=== PATIENT | male | born 1970 | race Caucasian/White ===

== ENCOUNTER 2018-07-15 00:30 | Inpatient (IN) | payer OTHER ==
[~2018-07-15] VITALS: Ht 180.3 cm; Wt 85.5 kg
[2018-07-15] MEDS ORDERED: SINGULAIR4 M1 PO (00:39)
[2018-07-15] MEDS ORDERED: VENTOLIN HFA18 GM INH (00:39)
[2018-07-15] MEDS ORDERED: ASMANEX220 MC1 INH (00:40)
--- NOTE | 2018-07-15 03:31 | NUR ---
ADMIT THIS 47YR OLD MALE TO CCU PER STRETCHER. STOOD AND PIVOTED TO BED FROM STRETCHER. IS TACHYPNEAC AND RESP LABORED. AFTER NEB TX GIVEN PER RT WAS ABLE TO HAVE HOB DOWN TO ABOUT 20 DEGREES. STATES HAS NOT SLEPT WELL FOR 2 DAYS NOR EATEN OR TAKEN MUCH FLUIDS. VOIDED JUST PRIOR TO COMING TO ED. HAS HX OF SLEEP APNEA BUT DOES NOT USE ALL THE TIME. WHEN PT DOES FALL ASLEEP SNORING NOTED. GIVEN SIP COLA. HR 127 ON ADMISSION BUT DEC TO 113 WHEN ASLEEP. RR 26-32. HAS COUGHING EPISODES PT STATES COUGH IS PRODUCTIVE AND THAT SPUTUM IS WHITE. DID HAVE COUGHING EPISODE WHERE PT HAD INC SOB FOR ABOUT 5 MIN AFTERWARD. IS ON 02 4L NC. DID VOID HERE, 300ML CONCENTRATED URINE.
--- NOTE | 2018-07-15 03:56 | NUR ---
PT WILL FALL ASLEEP FOR 5 MIN AND THEN AWAKEN COUGHING, HR AND RR WILL THEN INC. DR LIZARRAGA CALLED AND ORDER RECIEVED.
--- NOTE | 2018-07-15 04:24 | NUR ---
PT WAS GIVEN ROBITUSSIN COUGH SYRUP. RESTING A LITTLE BETTER NOW.
--- NOTE | 2018-07-15 05:14 | NUR ---
PT CALLED REQUESTING A BREATHING TRT, RT NOTIFIED AND WILL BE HERE SHORTLY.
--- NOTE | 2018-07-15 05:34 | NUR ---
REQUESTED NEB TX. BETSY TX WELL AND STATES IT MADE HIM FEEL BETTER. SLEEPS FOR SHORT INTERVALS.
--- NOTE | 2018-07-15 06:06 | NUR ---
WILL SLEEP OFF AND ON. RR 36-4- EVEN WHEN ASLEEP.
--- NOTE | 2018-07-15 07:02 | NUR ---
SLEPT WELL FOR ABOUT 1 HR, SATS DID DEC TO 87 AND 02 INC TO 5L, MOUTH BREATHING SOMEWHAT.
--- NOTE | 2018-07-15 07:10 | NUR ---
NT AND ORAL SUCTIONING DONE AT THIS TIME.
--- NOTE | 2018-07-15 07:30 | NUR ---
REPORT RECIEVED. PATIENT IS LAYING IN BED, EYES CLOSED. USING ACM BREATHING.
--- NOTE | 2018-07-15 08:00 | NUR ---
PATIENT IS NOW SITTING UP IN CHAIR, EXTREME SHORTNESS OF BREATH. RESP VERY LABORED. TRIPODING. LUNGS WITH WHEEZES AND VERY TIGHT. RR-35, HR- 115. RESP THERAPY NOTIFIED TO GIVE NEB TREATMENT STAT.
--- NOTE | 2018-07-15 08:15 | NUR ---
NEB TREATMENT BEING GIVEN. REMAINS IN CHAIR. IVF LR BOLUS GONZALES, SOLUMEDROL [address] LIZARRAGA IN ROOM.
--- NOTE | 2018-07-15 08:45 | NUR ---
LAYING DOWN IN BED, IS MORE RESTFUL.
--- NOTE | 2018-07-15 08:55 | NUR ---
SITTING AT BEDSIDE, COUGHING, STATES IS WAS DOING BETTER THEN STARTED TO COUGH, NOW I CAN NOT BRREATH. STATES I AM REALLY STRUGGLING. DR. LIZARRAGA IS HERE AND AWARE. VAPOTHERM, CONTINOUS NEB ORDERED. ROBITUSSIN 10 ML GIVEN FOLLOWED BY MORPHING 1 MG IV.
--- NOTE | 2018-07-15 09:46 | NUR ---
continue to recieve CONTINOUS NEB. IS MORE RESTFUL AT THIS TIME IS ON VAPOTHERM AT 50 FIO2. IVF LR AT 125 ML/HR. IS NOW NPO. LR BOLUS COMPLETE EARLIER.
--- NOTE | 2018-07-15 10:15 | NUR ---
IN BED RESTING, RESP RATE 30-40 PER MIN.
--- NOTE | 2018-07-15 10:47 | NUR ---
MIREYA STATES"I DON'T FEEL LIKE ANYTHING IS WOKING" RESP REMAIN LABORED USING ACM, O2 SAT-92, RESP RATE-40, REMAINS ON VAPOTHERM AT 50% FIO2.
--- NOTE | 2018-07-15 11:00 | NUR ---
BIPAP IMPLEMENTED 16/8 FIO2-50% RR-20.
--- NOTE | 2018-07-15 11:15 | NUR ---
TOLERATING BIPAP WELL. RR DECREASED TO 15.DR. LIZARRAGA DISCUSSED POSSIBLE NEED FOR INTABATION, PATEINT IS UNDERSTANDING AND ACCEPTING IF INTABATION IS NEEDED. PATIENT IS IN ROOM.
--- NOTE | 2018-07-15 11:30 | NUR ---
SITTING AT BEDSIDE. HAVING SEVERE COUGHING EPISODE. PATIENT UNABLE TO TALK. HR-130. DR. LIZARRAGA HERE AND AWARE. ORDERS RECIEVED TO INTABATE. PT AND PATIENT AWARE.
--- NOTE | 2018-07-15 12:00 | NUR ---
PATIENT INTABATED PER Alex MAHONEY METAL ANNEALER USING SIZE 7 TUBE. PROPOFOL GTT HUNG. INTABATED W/O PROBLEMS. WRIST RESTRAINTS BILAT PLACED.
--- NOTE | 2018-07-15 12:20 | NUR ---
CHEST XRAY DONE. ETT TO 24 AT TEETH FROM 21.
--- NOTE | 2018-07-15 12:30 | NUR ---
VENT SETTINGS TV-450, FIO2-70, CMV-26, PEEP-8, PIP-25. SPUTUM SENT TO LAB. SUCTIONED FOR LARGE AMOUNT OF THICK YELLOW SPUTUM.
--- NOTE | 2018-07-15 12:30 | NUR ---
ESPINOZA CATH PLACED WITH RETURN OF CLEAR YELLOW URINE. FENTANYL GTT HUNG AT 2 MG/KG/MIN, TITRATING PROPOFOL GTT PRN. CURRENT RATE 50 MCG/KG/MIN.
--- NOTE | 2018-07-15 12:45 | NUR ---
ABG RESULTS 70% FIO2 PH-7.21, PCO2-59.9,PO2-101, HCO-22.9, SAT-95.6.
--- NOTE | 2018-07-15 13:57 | NUR ---
Certified Heart Failure Nurse Notes: Diagnosis:heart failure exacerbation history of CVA, CAD, CABG, DM Delinquent Tax [employer]or Barbara PCP:Bryant King Echocardiogram pending Admit Wt.: 212 lb Admit BNP: 181 Social support system: daughter in law has given patient book on healthy eating. Nephew Riley Ellington is emergency contact and accompanies patient to appointments in [place]. Weight monitoring: Scale present in home. Identifies how to weigh daily/ identifies when to notify PCP Symptom management: Specific written recommendations to follow-up for ongoing management, and to address changes in weight or symptoms discussed. Transportation mode: Patient drives Diet: Usual meals include red meat, but not daily Cooks and shops for self. Dines out once a month with nephew at [facility] and enjoys sharing the granados fried oXactium plate. Demonstrates label reading abilities Medication routine: Denies missed medications. Is familiar with medications and timely in taking Tikosyn. Uses weekly pill box. Has been counseled on minimizing/avoiding use of NSAIDs Tobacco: former Advanced directive: Not discussed at this initial visit Recommendations prior to discharge: Document ambulation oxygen saturations prior to discharge Absence of orthostatic hypotension. DC weight < admit weight. Follow up visit to be made prior to DC (as per [facility] HF Bundle) Will follow up with patient with post-discharge phone call. Teaching materials given: [facility] Heart Failure bundle folder-[facility] My Action Plan Living Well with Heart Failure book, Daily weight and symptom monitoring log, [facility] contact information
--- NOTE | 2018-07-15 14:10 | NUR ---
DR. LIZARRAGA AWARE OF U/O.
--- NOTE | 2018-07-15 14:34 | NUR ---
PROPOFOL GTT AT 50 MG/KG/MIN. FENTANYL GTT AT 3.5 MCG/KG/MIN. RASS -3. VENT SETTING UNCHANGED.
--- NOTE | 2018-07-15 15:05 | NUR ---
U/O= 15 ML OVER PAST HOUR. LR BOLUS HUNG AT 500 ML OVER 1 HR..
--- NOTE | 2018-07-15 15:48 | NUR ---
ABG RESULTS ON 60% FIO2 PH-7.24, PCO2-54.4, PO2-72, HCO3-22.5, SAT-89.7.
--- NOTE | 2018-07-15 15:48 | NUR ---
AGBS ON FIO2 OF 50% PH-7.24, PCO2-54.4, PO2-72,HCO3-22.5 SAT-89.7.
--- NOTE | 2018-07-15 16:19 | NUR ---
THIS SERVICE LINE BUS CLEANER ASSISTED RUBEN ANGELO TO REPOSITION PATIENT TO HIS RIGHT SIDE WITH PILLOWS UNDER PRESSURE AREAS. RN, RT AND MD IN ROOM AT THIS TIME.
--- NOTE | 2018-07-15 16:20 | NUR ---
upon attemptimg TO REPOSITION PATIENT, WITH MOVEMENT PATIENT WITH EXTREME AGITATION, COUGHING. HR TO 130, O2 SAT TO 80, FIO2 INCREASED TO 100% , FENTANYL 100 MCG IV GIVEN. ETCO2 TO 80'S . RT AND DR. LIZARRAGA HERE AND AWARE OF STRESS PATIENT HAS WITH TURNING. SUCTIONED FOR LG AMOUNT OF THIS YELLOW SPUTUM.
--- NOTE | 2018-07-15 16:42 | NUR ---
PT IS CURRENTLY INTUBATED I TALKED WITH PT WHO IS IN THE ROOM AND SHE STATES THEY ARE PLANNING ON RETURNING HOME TO [place] WHEN PT IS BETTER.
--- NOTE | 2018-07-15 17:00 | NUR ---
VENT SETTINGS CHANGED TO TV-450,CMV-14,PEEP-5.
--- NOTE | 2018-07-15 17:20 | NUR ---
PROPOFOL DECREASED TO 40 MCG/KG/MIN. FENTANLY GTT REMAINS AT 3.5 MCG/KG/MIN. POSITIONED TO BACK.
--- NOTE | 2018-07-15 17:30 | NUR ---
NO FUTHER CHANGES, REMAINS ON VENT AT 60% FIO2, TV-450,CMV-14,PEEP-5, PIP-18, ETCO2-66. BOLUS OF LR 500 ML REPAEAED , U/O REMAINS LOW. AWARE.
--- NOTE | 2018-07-15 18:15 | NUR ---
SECOND BOLUS OF LR INFUSED, U/O REMAINS LOW.
--- NOTE | 2018-07-15 18:20 | NUR ---
DR. LIZARRAGA UPDATED ON U/O AND ETCO2. ORDERS RECIEVED TO DO ABG.
--- NOTE | 2018-07-15 18:37 | NUR ---
ABG RESULTS ON 60% FIO2, PH-7.17, PCO2-65.7, PO2-102. DR. ELHAM FORTE. RT TO INCREASE FREQUENCY.
--- NOTE | 2018-07-15 19:00 | NUR ---
ESPINOZA IRIGATED WITH 60 ML STERILE WATER. IRRIGATED WITH POBLEMS. DR. LIZARRAGA HERE TO TALK WITH PATIENT REGRARDING TRANSFER TO HIGHER LEVEL OF CARE. REPORT TO NEXT SHIFT.
--- NOTE | 2018-07-15 19:20 | NUR ---
REPORT RECEIVED FROM RUBEN ANGELO. PATIENT IS CURRENTLY INTUBATED WITH SIZE 7 TUBE, BREATH SOUNDS EQUAL BILATERALLY, ETCO2 HIGH BETWEEN 65 AND 73, SPO2 95%, RR 10. PROPOFOL GTT AT 30 MCG/KG/MIN, FENTANYL GTT AT 3.5 MCG/KG/MIN, IVF INFUSING AT 200 ML/HR, ALL IV SITES PATENT. ESPINOZA PRESENT, DRAINING CONCENTRATED URINE. SOFT RESTRAINTS PRESENT BUE, INTACT. AT BEDSIDE.
--- NOTE | 2018-07-15 20:00 | NUR ---
IV ABX STARTED EARLY DUEE TO PATIENT BEING TRANSFERED WITH [facility] SOON. PATIENT REMAINS SEDATED, RASS -2 ON VENTILATOR WITH PROPOFOL GTT AT 30 MCG/KG/MIN AND FENTANYL GTT AT 3.5 MCG/KG/MIN. LUNGS ARE COARSE BILATERALLY, RT AT BEDSIDE. AFTER PREOXYGENATION, PATIENT DEEP SUCTIONED BY RT, THICK YELLOW SPUTUM NOTED IN SUCTION TUBING.
--- NOTE | 2018-07-15 20:25 | NUR ---
[facility] TEAM AT BEDSIDE AT 2024, REPORT GIVEN BY THIS RN. AT 2039, PATIENT WAS HOOKED UP TO [facility] PUMP EQUIPMENT WITH PROPOFOL GTT AT 30 MCG/KG/MIN AND FENTANYL GTT ATT 3.5 MCG/KG/MIN. 2041 PATIENT TRANSFERED TO [facility] HEAD OPERATOR SULFIDE, HEART RATE 109, O2 95% ON 60% FIO2, RR 10, BP 135/84. 2048 PATIENT SWITCHED TO [facility] VENTILATOR, O2 SATURATION NOW 96%, HEART RATE 108. 2050 PROPOFOL GTT INCREASED TO 40 MCG/KG/MIN AND AT 2052, PATIENT GIVEN IV PROPOFOL BOLUS BY [facility] TEAM. 2053 PATIENT GIVEN 100 MCG IV FENTANYL PER THIS RN. 2053 PATIENT SWITCHED TO BVM TO TEXT LUNG COMPLIANCE, DUE TO DIFFICULT BVM VENTILATION, PATIENT GIVEN 50 MG IV ROCURONIUM. 2099 PATIENT REMAINS ON BMV, ETCO2 NOW 41. 2102 NEW ETT PLACED BY [facility] TEAM WITH BOUGIE, SIZE 8, 26 AT TEETH. 2103, LUNG SOUNDS BILATERALLY CONFIRMED BY Blaire FERNÁNDEZ, 2104 XRAY TO ROOM TO CONFIRM NEW TUBE PLACEMENT. 2105 WITH NEW TUBE, O2 IS 97%, ETCO2 42, HR 109, BP 128/82, PROPOFOL GTT REMAINS AT 40 MCG/KG/MIN, FENTANYL GTT REMAINS AT 3.5 MCG/KG/MIN. 2106 50 MCG IV FENTANYL GIVEN. 2108 XRAY COMPLETE, 2110 LUNG SOUNDS CONFIRMED BY THIS RN. 2111 50 MCG IV FENTANYL GIVEN. 2115 PATIENT TRANSFERED TO [facility]. 2123 50 MG IV ROCURONIUM GIVEN BY THIS RN. 2124 DEEP SUCTION DONE WITH 3 ML SALINE FLUSH, SMALL AMOUNT OF BLOOD TINGED SPUTUM NOTED IN SUCTION TUBING, SUCTION DONE BY [facility] TEAM. 2128 PATIENT LEAVES UNIT WITH [facility] TEAM AND RN TERELL AND JOLENE.
== END 2018-07-15 21:29 | disposition short-term general hospital (02) | DRG 208 ==
LOC: ED 00:30 → CCU 00:32
PROVIDERS: ADMIT Student in an Organized Health Care Education/Training Program
PROC: 0BH17EZ Insertion of Endotracheal Airway into Trachea, Via Natural or Artificial Opening (ICD-10-PCS; principal; 2018-07-15)
PROC: 5A1935Z Respiratory Ventilation, Less than 24 Consecutive Hours (ICD-10-PCS; 2018-07-15)
DX: J15.7 Pneumonia due to Mycoplasma pneumoniae (principal); J96.02 Acute respiratory failure with hypercapnia; J96.01 Acute respiratory failure with hypoxia; J45.41 Moderate persistent asthma with (acute) exacerbation; D75.1 Secondary polycythemia; Z87.891 Personal history of nicotine dependence
CPT/HCPCS: 31500; 31720; 36415; 36600; 51702; 71045; 80048; 80053; 82803; 83605; 83880; 85025; 87040; 87070; 87205; 87502; 87899; 94002; 94640; 94644; 94645; 94660; 94799; 96361; 96365; 96375; 96376; 99285-25; G0378; J0330; J0456; J0696; J2270; J2704; J2930; J3010; J3475; J7030; J7060; J7120